=== PATIENT | female | born 1975 | race Caucasian/White ===

== ENCOUNTER 2024-01-04 00:09 | Emergency (ER) | payer MEDICAID ==
[~2024-01-04] VITALS: Ht 157.5 cm; Wt 83.9 kg
[2024-01-04 01:30] VITALS: BP 127/69; TEMP 98.7; O2SAT 100
[2024-01-04] MEDS ORDERED: HYDROCODONE/APAP 10/325MG TABLET ONE (02:41)
[2024-01-04] MEDS: HYDROCODONE/APAP 10/325MG TABLET PO ONE (02:57)
== END 2024-01-04 04:44 | disposition left against medical advice (07) ==
LOC: ER 00:17
DX: R07.0 Pain in throat (principal); Z20.822 Contact with and (suspected) exposure to COVID-19; R04.2 Hemoptysis; Z53.21 Procedure and treatment not carried out due to patient leaving prior to being seen by health care provider
CPT/HCPCS: 70490-TC; 71250-TC; 86403-TC; 87070-TC